=== PATIENT | female | born 1965 | race Caucasian/White ===

== ENCOUNTER 2018-08-08 21:14 | Emergency (ER) | payer BC, OTHER, SELFPAY ==
--- NOTE | 2018-08-08 21:20 | ED.PSYCH ---
HPI - Psych General Chief Complaint: Psychiatric Symptoms Stated Complaint: ETOH, brought by police Time Seen by Provider: 08/08/18 21:19 Source: patient and police Mode of arrival: other (PD) History of Present Illness HPI Narrative: This is a 52-year-old female who is brought by the police for possible intoxication. Patient was on the [place] from the [facility] to [place]. They were contacted is patient was acting erratically. When they approached the patient she spit on 1 of the officers and was screaming profanities. On arrival patient continues to scream profanities at the officers, myself as well as nursing staff. When asked why she is here she states because her rights are being violated, patient continues to screen and was intermittently physically aggressive with multiple staff members. Patient states that she does take Seroquel, she denies any alcohol, she denies any other ingestions. She denies any intent to hurt herself. She denies verbally any intent to hurt others. She states that she does see a psychiatrist in [place]. Per PD she lives on [address]. Patient denies other medical problems. She states she has been taking her Seroquel daily. She makes multiple references during her evaluation to her rights being taken away, that soldiers are dying for country, and spit on officers twice while in the room. She also references [place] randomly without any context. Pre PD she has a history of manic depression. Patient does not answer ROS questions, she repeatedly asks if we have tested her blood. MD complaint: other (erractic behavior) Related Data Allergies Allergy/AdvReac Type Severity Reaction Status Date / Time No Known Drug Allergies Allergy Verified 08/08/18 21:46 Review of Systems Review of Systems ROS Unobtainable: Other (Patient does not answer the majority of questions. ) [facility] Social History (Updated 08/08/18 @ 21:52 by Jany Wick DO) Smoking Status: Never smoker alcohol intake: current substance use type: does not use Social History (Updated 08/08/18 @ 21:52 by Jany Wick DO) Smoking Status: Never smoker alcohol intake: current substance use type: does not use Exam Narrative Exam Narrative: GENERAL: Alert and oriented x three, well-nourished, well-appearing female. Patient intermittently speaking in normal voice and screaming. She answers some questions but does not answer others. She is not cooperative. She uses profanities with multiple individuals present. HEENT: Head normocephalic, atraumatic, EOMI, pupils reactive, face symmetric, moist mucous membranes NECK: Supple, full range of motion, nontender to palpation. CARDIOVASCULAR: Regular rate and rhythm without murmurs, rubs or gallops. RESPIRATORY: Breath sounds equal bilaterally, no wheezes rales or rhonchi. ABDOMEN: Soft, nontender. Normoactive bowel sounds all 4 quadrants. No guarding or rebound, rigidity, no mass : No CVA tenderness EXTREMITIES: Normal range of motion, no clubbing or edema. Neurovascularly intact. Normal gait. NEUROLOGICAL: Cranial nerves II through XII grossly intact. Moving all extremities SKIN: Warm, dry, no petechiae, no rashes or lesions. PSYCH: denies suicidal intent or ideation, denies homicidal thought/intent, denies hallucinations, Initial Vital Signs Initial Vital Signs: Vital Signs Temperature 97.3 F L 08/09/18 03:18 Pulse Rate 95 H 08/09/18 03:18 Respiratory Rate 16 08/09/18 03:18 Blood Pressure 125/84 08/09/18 03:18 Pulse Oximetry 95 08/09/18 03:18 Course Orders Ordered: ED Orders 08/08/18 23:55 Urine Drug Screen, Rapid Stat 08/09/18 03:05 EKG-12 Lead Stat Discontinued Medications Diphenhydramine HCl (Benadryl) 50 mg IM NOW ONE Stop: 08/08/18 21:20 Last Admin: 08/08/18 21:25 Dose: 50 mg Haloperidol (Haldol) 10 mg IM NOW ONE Stop: 08/08/18 21:20 Last Admin: 08/08/18 21:25 Dose: 10 mg Lorazepam (Ativan) 1 mg IM NOW ONE Stop: 08/08/18 21:20 Last Admin: 08/08/18 22:41 Dose: Not Given Vital Signs - 8 hr 08/09/18 03:18 08/09/18 05:00 Temperature 97.3 F L 98.1 F Pulse Rate 95 H 83 Respiratory Rate 16 18 Blood Pressure [Left Arm] 125/84 123/83 Pulse Oximetry 95 96 MDM - Psych Lab Data Attestation: I reviewed the patient's lab results. Result diagrams: 08/08/18 21:30 08/08/18 21:30 Lab Results 08/08/18 08/08/18 08/08/18 Range/Units 21:30 21:30 21:30 WBC 13.6 H (4.5-11.0) X10^3/uL RBC 4.86 (4.0-5.2) X10^6/uL Hgb 14.2 (12.0-16.0) g/dL Hct 43.3 (36-46) % MCV 88.9 (80-100) fL MCH 29.2 (26-34) PG MCHC 32.8 (30-36) % RDW 14.1 (11.6-14.8) % Plt Count 322 (150-400) X10^3/uL Neut % (Auto) 53.3 (50-75) % Lymph % (Auto) 37.4 (25-40) % Louisa % (Auto) 6.8 (3-14) % Eos % (Auto) 1.8 L (2-4) % Baso % (Auto) 0.7 (0-2) % Neut # (Auto) 7200 H (9634-1609) /uL Lymph # (Auto) 5100 H (9165-8332) /uL Louisa # (Auto) 900 (0-900) /uL Eos # (Auto) 300 (0-450) /uL Baso # (Auto) 100 (0-100) /uL Sodium 145 (137-145) mmol/L Potassium 4.3 (3.4-5.1) mmol/L Chloride 107 (98-107) mmol/L Carbon Dioxide 18 L (22-32) mmol/L BUN 23 H (7-17) mg/dL Creatinine 1.20 H (0.52-1.04) mg/dL Estimated GFR 47.0 L (>60) mL/min BUN/Creatinine Ratio 19.2 (6-22) Glucose 166 H (70-100) mg/dL Calcium 10.5 H (8.4-10.2) mg/dL Total Bilirubin 0.4 (0.2-1.3) mg/dL AST 26 (14-36) IU/L ALT 8 L (9-52) IU/L Alkaline Phosphatase 85 (38-126) U/L Total Protein 8.5 H (6.3-8.2) g/dL Albumin 5.3 H (3.5-5.0) g/dL Globulin 3.2 (1.7-4.1) g/dL Albumin/Globulin Ratio 1.7 (1.0-2.8) TSH 3.88 (0.47-4.68) uIU/mL Salicylates (<20) mg/dL Urine Opiates Screen (Negative) Ur Oxycodone Screen (Negative) Urine Methadone Screen (Negative) Acetaminophen (10-30) ug/mL Ur Barbiturates Screen (Negative) U Tricyclic Antidepress (Negative) Ur Phencyclidine Scrn (Negative) Ur Amphetamines Screen (Negative) U Methamphetamines Scrn (Negative) Ur MDMA Scrn (Ecstasy) (Negative) U Benzodiazepines Scrn (Negative) Urine Cocaine Screen (Negative) U Marijuana (THC) Screen (Negative) Ethyl Alcohol < 10 mg/dL 08/08/18 08/08/18 Range/Units 21:30 23:55 WBC (4.5-11.0) X10^3/uL RBC (4.0-5.2) X10^6/uL Hgb (12.0-16.0) g/dL Hct (36-46) % MCV (80-100) fL MCH (26-34) PG MCHC (30-36) % RDW (11.6-14.8) % Plt Count (150-400) X10^3/uL Neut % (Auto) (50-75) % Lymph % (Auto) (25-40) % Louisa % (Auto) (3-14) % Eos % (Auto) (2-4) % Baso % (Auto) (0-2) % Neut # (Auto) (4721-4822) /uL Lymph # (Auto) (5004-6412) /uL Louisa # (Auto) (0-900) /uL Eos # (Auto) (0-450) /uL Baso # (Auto) (0-100) /uL Sodium (137-145) mmol/L Potassium (3.4-5.1) mmol/L Chloride (98-107) mmol/L Carbon Dioxide (22-32) mmol/L BUN (7-17) mg/dL Creatinine (0.52-1.04) mg/dL Estimated GFR (>60) mL/min BUN/Creatinine Ratio (6-22) Glucose (70-100) mg/dL Calcium (8.4-10.2) mg/dL Total Bilirubin (0.2-1.3) mg/dL AST (14-36) IU/L ALT (9-52) IU/L Alkaline Phosphatase (38-126) U/L Total Protein (6.3-8.2) g/dL Albumin (3.5-5.0) g/dL Globulin (1.7-4.1) g/dL Albumin/Globulin Ratio (1.0-2.8) TSH (0.47-4.68) uIU/mL Salicylates 1.9 (<20) mg/dL Urine Opiates Screen Negative (Negative) Ur Oxycodone Screen Negative (Negative) Urine Methadone Screen Negative (Negative) Acetaminophen < 10 L (10-30) ug/mL Ur Barbiturates Screen Negative (Negative) U Tricyclic Antidepress Positive H (Negative) Ur Phencyclidine Scrn Negative (Negative) Ur Amphetamines Screen Negative (Negative) U Methamphetamines Scrn Negative (Negative) Ur MDMA Scrn (Ecstasy) Negative (Negative) U Benzodiazepines Scrn Negative (Negative) Urine Cocaine Screen Negative (Negative) U Marijuana (THC) Screen Negative (Negative) Ethyl Alcohol mg/dL Urine Dip Bedside Urine Glucose Negative Bedside Urine Bilirubin - Negative Bedside Urine Ketone - Negative Urine Specific [place] 1.025 Bedside Urine Occult Blood +/- Bedside Urine pH 5.5 Bedside Urine Protein - Negative Bedside Urine Urobilinogen - Negative Bedside Urine Nitrite - Negative Bedside Urine Leukocytes +/- 15 Esterase ECG Data Attestation: I personally reviewed and interpreted this ECG as follows: Prior ECG tracings: not available for review Interpretation: sinus arrythmia, incomplete RBBB, V1/V2 q wave. No ST elevation noted. No prior for comparision. MDM Narrative Medical decision making narrative: Patient brought in for possible alcohol intoxication, she is not slurring her words and by her speech patterns and phrases my suspicion would be that she has a mental health illness. Per PD she has a history of manic depression and per patient she takes Seroquel daily and sees a psychiatrist. She does state that she has been in multiple mental prisons when asked if she has been hospitalized in mental health facilities. Patient was verbally as well as physically aggressive with the police as well as the emergency department staff and she was placed in hard restraints and given chemical restraint as well. Was able to get some additional history, patient was apparently traveling with her sister in the [facility]. She had kicked her sister out a car earlier today that picked her back up. Then was returning on the [place]. Patient was then contacted by the police after leaving the [place] in her vehicle. Patient's states she does have a mental health history, she has multiple cards in her wallet that are consistent with this. She lives in the [facility]. Hard restraints have been removed, patient did attempt to give urine and drank water and then gave sample. Able to obtain medical records and patient has prior labs showing renal function with a creatinine of 1.2 to 0.9 range in 2018, records from 2017 show SABRINA with creatinine at 3.2 in 2017. [facility] evaluated patient, feel patient appropriate for involuntary hospitalization. Prior patient records show several hospitalizations for suicide attempt by starvation, with dehydration and SABRINA, [place] Patient charts reflect similar affect and interactions as today. Patient re-evaluated. We discussed that she would like to be discharged. I discussed that I am concerned for mental state. Asked her if she is willing to be in a mental facility but she states she does not have mental problems but that she is voluntary if need be. Contacted [facility] and they are going to dispatch. Fausto from [facility] in the department to evaluate patient. Patient detained. Facility requires EKG. EKG obtained and shows sinus arrhythmia, rate 84 P are 157 QRS of 97 QTC of 385. Incomplete right bundle branch block, no ST elevation appreciated. No ST depression appreciated. Q-waves noted in V1 and V2. No prior EKG available in our cardio fountain server. No prior EKG in records sent from prior hospitalization. Patient case reviewed and accepted at [facility] by Doug CARDOZA. Plan for transport via EMS @ 0900am. Patient signed out to Dr. Fuller while awaiting EMS transport. Discharge Plan Departure Patient Disposition: Xfer Psychiatric Hosp Clinical Impression: Maren
[2018-08-08] MEDS: HALOPERIDOL 5 MG/ML VIAL 10 MG IM (21:25)
[2018-08-08] MEDS: diphenhydrAMINE 50 MG/ML VIAL IM (21:25)
[2018-08-08 21:46] VITALS: BMI 27.4
[2018-08-08 21:50] LABS: Add Manual Diff / Slide Review NO; Basophils Absolute Auto 100 /uL (0-100); Basophils Percent Auto 0.7 % (0-2); Eosinophils Absolute Auto 300 /uL (0-450); Eosinophils Percent Auto 1.8 % (2-4); Hematocrit 43.3 % (36-46); Hemoglobin 14.2 g/dL (12.0-16.0); Lymphocytes Absolute Auto 5100 /uL (1100-4500); Lymphocytes Percent Auto 37.4 % (25-40); Mean Corpuscular HGB Conc 32.8 % (30-36); Mean Corpuscular Hemoglobin 29.2 PG (26-34); Mean Corpuscular Volume 88.9 fL (80-100); Monocytes Absolute Auto 900 /uL (0-900); Monocytes Percent Auto 6.8 % (3-14); Neutrophils Absolute Auto 7200 /uL (1500-7000); Neutrophils Percent Auto 53.3 % (50-75); Platelet Count 322 X10^3/uL (150-400); Red Blood Cell Count 4.86 X10^6/uL (4.0-5.2); Red Cell Distribution Width 14.1 % (11.6-14.8); White Blood Cell Count 13.6 X10^3/uL (4.5-11.0)
--- NOTE | 2018-08-08 22:04 | PC.NURSE ---
Pt requesting to know when her lab results will be back.
--- NOTE | 2018-08-08 22:08 | PC.NURSE ---
pt arrives yelling im going to simona you, this is against my will, your abusin gmy rights, im going to simona the shit out of you. are you going to try and take out my eye like last time pt speaking in low, suspicious voice, then suddenly starts yelling, and cursing. unable to verbally deescalate pt. pt begins laughing then yelling, and spitting. mask placed on pt. pt yelling random comments. fucking shit no children should be treated like this yelling my dad is an deputy county attorney, i took law classes pt refusing to cooperate with staffs request, pt combative. required 5 officers and 3 staff to restrain pt from injuring staff. during this time pt continues to thrash, hitting, kicking and spitting toward staff. pt screaming you fucks, camila states you are going to be claiming and begging god doesnt want you anyways pt quiets for about 30 seconds, and physical restraints are being applied. asked pt if we could call family for her pt s pt then begin yelling i so sorry americans, fought satanic shits Debutaunts. pt then states im the biggest fucking bitch your ever gonna meet then attempts to spit.
[2018-08-08 22:17] LABS: Alanine Aminotransferase 8 IU/L (9-52); Albumin 5.3 g/dL (3.5-5.0); Albumin Globulin Ratio 1.7 (1.0-2.8); Alkaline Phosphatase 85 U/L (38-126); Aspartate Aminotransferase 26 IU/L (14-36); BUN Creatinine Ratio 19.2 (6-22); Bilirubin Total 0.4 mg/dL (0.2-1.3); Blood Urea Nitrogen 23 mg/dL (7-17); Calcium 10.5 mg/dL (8.4-10.2); Carbon Dioxide 18 mmol/L (22-32); Chloride 107 mmol/L (98-107); Ethanol (ETOH) < 10 mg/dL; Globulin 3.2 g/dL (1.7-4.1); Glucose 166 mg/dL (70-100); HEMOLYSIS 27 (0-50); Potassium 4.3 mmol/L (3.4-5.1); Sodium 145 mmol/L (137-145); Total Protein 8.5 g/dL (6.3-8.2)
--- NOTE | 2018-08-08 22:21 | PC.NURSE ---
Pt refusing to give urine sample
--- NOTE | 2018-08-08 22:24 | PC.NURSE ---
2124 10mg Haldol, 50mg Benadryl IM given. pt continuing to resist care. all of staff and law enforcement do not feel safe to unrestain pt due to pt's impulsivity and combativeness. 2134 pt calming, pt stands up with assistance and sits on bed, locked restraints then attatched to bed, all four limbs. right hand above head and left hand at side. pt answering triage questions appropriatly for a short time. when asked if she feels like hurting herself pt states no but your hurting me, pt then continues to answer all additional questions with no but your hurting me. 2214- Law enforcment reports. pt was vacationing with sister on [facility]. pt and sister were reuniting pt's sister is from [place]. sister reports pt kicked her out of her car earlier today and then picked her up later. officer reports pt's sister was crying in passinger seat. sister reports pt's warned her and told her make sure she takes her medications. Sister reports [facility] facility is familiar with her and has information about her. pt's is on his way here, per officer.
[2018-08-08 22:33] LABS: Thyroid Stimulating Hormone 3.88 uIU/mL (0.47-4.68)
--- NOTE | 2018-08-08 22:49 | PC.NURSE ---
Pts restraints all checked to assure that there is spaced between her wrist and the restraint. readjusted arms,left left arm at side and moved right arm to side as well.
--- NOTE | 2018-08-08 23:02 | PC.NURSE ---
Patient is using the restroom in room 13. She has changed into paper scrubs. The RN is assisting the patient to the bathroom and given her something to drink.
[2018-08-08 23:46] LABS: Acetaminophen < 10 ug/mL (10-30); Salicylate 1.9 mg/dL (<20)
--- NOTE | 2018-08-09 | PC.NURSE ---
pt knocked on door as instructed, pt asked to use the bathroom. pt followed direction and layed back down on the bed. bathroom door unlocked. pt urinated and brought hat with urine in it to the door. pt then layed back down on bed. spoke with pt's Yayo Taylor [phone] reports this is her cycle about every 3-4 months she will stop taking her seroquel, states she likes the high, its a drug to her reports about 5 or 6 days ago pt was becoming edgy indicating she was not taking her meds, he made her take the pills in front of him. reports he told pt not to go to the [facility] because he couldn't protect her. reports pt has attempted to kill herself 4 times recently. once with alcohol, once trying to starve self, and once trying to drown self. states [place] up to her neck and someone stopped her. pt was admitted to hospital and transfered to [facility] when olinda
[2018-08-09 00:05] LABS: Urine Amphetamines Negative (Negative); Urine Cocaine Negative (Negative); Urine MDMA Negative (Negative); Urine Methamphetamines Negative (Negative); Urine Morphine/Opi cutoff 2000 Negative (Negative); Urine Phencyclidine Negative (Negative); Urine Tetrahydrocannabinol Negative (Negative)
[2018-08-09 00:06] LABS: Urine Barbiturates Negative (Negative); Urine Benzodiazepines Negative (Negative); Urine Methadone Negative (Negative); Urine Oxycodone Negative (Negative); Urine Tricyclic Antidepressant Positive (Negative)
--- NOTE | 2018-08-09 00:44 | PC.NURSE ---
pt continues to be calm and cooperative. pt verbalizes understanding of care. 1:1 observation with staff initiated. restraints dc'd.
--- NOTE | 2018-08-09 02:08 | PC.NURSE ---
RITU Davies arrived to evaluate pt.
--- NOTE | 2018-08-09 02:32 | PC.NURSE ---
PT up to use bathroom in room with [employer] at side, pt updated that DCR has arrived and will be in room to speak with her.
--- NOTE | 2018-08-09 02:50 | PC.NURSE ---
RITU Davies in room speaking with pt.
--- NOTE | 2018-08-09 02:55 | PC.NURSE ---
[facility]CR exited room and stated pt is being detained. Pt resting in room lying on stretcher with door locked and constant observation by sitter.
[2018-08-09 03:18] VITALS: BP 125/84; PULSE 95; RESP 16; TEMP 36.3; O2SAT 95
[2018-08-09 05:00] VITALS: BP 123/83; PULSE 83; RESP 18; TEMP 36.7; O2SAT 96
--- NOTE | 2018-08-09 07:30 | PC.NURSE ---
Patient sleeping on mattress
--- NOTE | 2018-08-09 07:47 | PC.NURSE ---
patient resting on mattress
--- NOTE | 2018-08-09 08:02 | PC.NURSE ---
patient turning around in bed, laying down
--- NOTE | 2018-08-09 08:03 | PC.NURSE ---
patient tossing in bed
--- NOTE | 2018-08-09 08:32 | PC.NURSE ---
patient states not feeling hungry. She has not eaten any food or had juice. She is laying on the mattress.
[2018-08-09 08:41] VITALS: BP 139/82; PULSE 89; RESP 18; TEMP 36.7; O2SAT 96
--- NOTE | 2018-08-09 09:00 | PC.NURSE ---
This morning pt refused to answer questions. unable to obtain a psychiatric assessment due to her not being cooperative. keeps repeating that the police hurt her neck last night and that she is in residential. when i asked her if she had any thought of hurting herself or others, she would turn the question around and ask the staff if we were seeing things and were going to hurt ourselves. breakfast offered to pt. she reports that she doesn't want to eat. she did drink some orange juice. bed sheets changed, warm blankets. informed pt that she will be leaving at 0900. pt in [place]
--- NOTE | 2018-08-09 09:08 | PC.NURSE ---
now sleeping on mattress
== END 2018-08-09 09:35 ==
PROVIDERS: Emergency Medicine; Emergency Provider Emergency Medicine
DX: F30.9 Manic episode, unspecified (principal)
CPT/HCPCS: 36415; 80053; 80305; 80320; 80329; 81003; 84443; 85025; 93005; 93010; 96372; 99285; G0480; J1200; J1630